=== PATIENT | female | born 1985 | race Caucasian/White ===

== ENCOUNTER 2025-05-12 12:03 | Emergency (ER) | payer OTHER ==
[~2025-05-12] VITALS: Ht 162.6 cm; Wt 90.2 kg
[2025-05-12 13:37] LABS: BASO # 0.0 10^3/uL (0.0-0.2); BASO % 0.4 % (0.0-1.0); EOS # 0.1 10^3/uL (0.0-0.5); EOS % 0.7 % (0.0-3.0); LYMPH # 2.0 10^3/uL (1.5-5.0); LYMPH % 20.8 % (24.0-44.0); MONO # 0.7 10^3/uL (0.0-0.8); MONO % 7.0 % (2.0-8.0); NEUTROPHILS # 6.9 10^3/uL (1.5-8.5); NEUTROPHILS % 70.5 % (36.0-66.0); PLATELET COUNT, AUTOMATED 340 10^3/uL (150-450)
[2025-05-12 13:49] LABS: ALT/SGPT 70 U/L (7.0-40); AST/SGOT 48 U/L (<34); CALCIUM LEVEL 9.3 MG/DL (8.5-10.1); CARBON DIOXIDE LEVEL 25 MMOL/L (20-31); CHLORIDE LEVEL 107 MMOL/L (98-107); CREATININE FOR GFR 0.60 MG/DL (0.55-1.30); GLOMERULAR FILTRATION RATE > 90.0 (>60); POTASSIUM SERUM 4.6 MMOL/L (3.5-5.1); SODIUM LEVEL 142 MMOL/L (136-145)
[2025-05-12 13:52] LABS: HCG, SERUM QUALITATIVE NEGATIVE (NEGATIVE)
[2025-05-12] MEDS: KETOROLAC 30 MG/ML 1 ML VIAL IV ONE (14:03)
[2025-05-12] MEDS: NS (Normal Saline) 0.9% 1,000 ML IV ONE (14:03)
[2025-05-12] MEDS: ONDANSETRON 4MG 2ML VIAL IV ONE (14:03)
[2025-05-12] MEDS ORDERED: ISOVUE-370 76% 100 ML VIAL As Ordered ONE (14:23)
[2025-05-12] MEDS ORDERED: AMOX875T2 PO (15:47)
[2025-05-12] MEDS ORDERED: ONDA-282 PO (15:51)
[2025-05-12 16:35] LABS: FREE T4 1.15 NG/DL (0.89-1.76)
[2025-05-12 17:01] VITALS: BP 128/69; TEMP 98.1; O2SAT 98
== END 2025-05-12 17:14 | disposition home or self-care (01) ==
LOC: M ED 12:03
DX: N83.202 Unspecified ovarian cyst, left side (principal); K76.0 Fatty (change of) liver, not elsewhere classified; R53.83 Other fatigue; K42.9 Umbilical hernia without obstruction or gangrene; Z88.2 Allergy status to sulfonamides; F17.290 Nicotine dependence, other tobacco product, uncomplicated
CPT/HCPCS: 74177; 80048; 80076; 83690; 84439; 84443; 84703; 85025; 87486; 87581; 87633; 87798; 96374; 96375; 99284; J1885; J2405; Q9967